=== PATIENT | female | born 1950 | race Caucasian/White ===

== ENCOUNTER → 2016-11-01 | Outpatient (CLI) | payer MEDICARE, OTHER ==
[~2016-11-01] MED LIST: AMOXICILLIN200 MG PO; CHILDREN'S CLEA10 MG PO; HYDR12.5C PO; LORATADINE10 M1 PO; VITAMIN D400 I1 PO
== END | disposition home or self-care (01) ==
LOC: US 07:30
DX: K76.0 Fatty (change of) liver, not elsewhere classified (principal)

== ENCOUNTER → 2016-11-03 | Outpatient (CLI) | payer MEDICARE, OTHER | END | disposition home or self-care (01) | LOC: RAD 13:14 | DX: Z01.818 Encounter for other preprocedural examination (principal); M76.821 Posterior tibial tendinitis, right leg; I10 Essential (primary) hypertension; E55.9 Vitamin D deficiency, unspecified; Z87.891 Personal history of nicotine dependence ==

== ENCOUNTER 2017-02-26 11:59 | Inpatient (IN) | payer MEDICARE, OTHER ==
[~2017-02-26] VITALS: Ht 160 cm; Wt 72.3 kg
[2017-02-26 12:03] VITALS: BP 114/60
[2017-02-26 12:30] LABS: BASO % 0.3 % (0.0-1.0); EOS % 0.5 % (1.0-4.0); HEMATOCRIT 35.6 % (37.0-47.0); HEMOGLOBIN 12.2 g/dl (12.0-16.0); LYMPH # 0.9 10*3/uL (1.3-4.4); LYMPH % 15.6 % (27.0-41.0); MEAN CELL VOLUME 87.7 fl (81.0-99.0); MEAN CORPUSCULAR HGB CONC 34.3 g/dl (33.0-37.0); MEAN PLATELET VOLUME 9.3 fl (9.6-12.3); NEUT # 3.9 10*3/uL (2.3-7.9); NEUT % 65.9 % (47.0-73.0); PLATELET COUNT AUTOMATED 202 10*3/uL (130-400); RED BLOOD COUNT 4.06 10*6/uL (4.10-5.10); RED CELL DISTRI WIDTH 12.4 % (0-14.5); WHITE BLOOD COUNT 5.9 10*3/uL (4.8-10.8)
[2017-02-26 13:07] LABS: BILIRUBIN NEGATIVE (NEGATIVE); BLOOD TRACE-INTACT (NEGATIVE); CLARITY SL CLOUDY (CLEAR); COLOR YELLOW (YELLOW); GLUCOSE NEGATIVE (NEGATIVE); KETONE NEGATIVE (NEGATIVE); LEUKO ESTERASE 1+ (NEGATIVE); NITRITE NEGATIVE (NEGATIVE); SPECIFIC GRAVITY <= 1.005 (1.005-1.030); UROBILINOGEN 0.2 E.U./dl (0.2-1.0)
[2017-02-26 13:13] LABS: BACTERIA TRACE; WBC 0-2 wbc/hpf (0-5)
[2017-02-26 13:13] LABS: ALBUMIN 3.1 gm/dl (3.1-4.5); ALKALINE PHOSPHATASE 72 U/L (45-117); BUN 11 mg/dl (7-24); CHLORIDE 95 mmol/L (98-107); CREATININE 0.66 mg/dL (0.55-1.02); POTASSIUM 2.7 mmol/L (3.5-5.1); SGOT/AST 22 IU/L (3-35); SGPT/ALT 25 U/L (12-78); SODIUM 134 mmol/L (136-145); TOTAL PROTEIN 7.1 gm/dL (6.4-8.2)
[2017-02-26 16:00] VITALS: BP 117/53; BP 122/55
--- NOTE | 2017-02-26 16:00 | NUR ---
A 66, admitted to , under the services of YOUSIF Jay DO with a diagnosis of HYPOKALEMIA/DIARRHEA. Chief complaint is DIARRHEA. Patient arrived via ambulance from ER. Monitor applied. Initial assessment completed. Vital signs taken and recorded. YOUSIF JAY DO notified of admission to the unit. Orders received. See assessment for past medical history, medications and allergies. Patient and/or family oriented to unit. [facility] reviewed. Clothing/patient valuable form completed. KRISTY GRANADOS
--- NOTE | 2017-02-26 17:37 | NUR ---
RESTING QUIETLY - IVF INFUSING VIA RAN ASYMPTOMATIC SITE. POTASSIUM RUN INFUSING.
[2017-02-26 20:00] VITALS: BP 110/69
--- NOTE | 2017-02-26 20:00 | NUR ---
Patient resting quietly with C/O DIARRHEA THAT IS LESS FREQUENT.IVF INFUSING. Respirations easy and regular. Vital signs stable. No overt distress. TINO CARSON
[2017-02-27] VITALS: BP 108/49
--- NOTE | 2017-02-27 00:10 | NUR ---
PT RESTING IN BED WITH EYES CLOSED. RESP-EASY AND REGULAR. IVF INFUSING WITH NO PROBLEM. CALL LIGHT IN REACH. SEE SHIFT ASSESSMENT.
--- NOTE | 2017-02-27 06:00 | NUR ---
SLEEPING IN BED, AWAKENS EASILY. TOLERATED ROUTINE MED WITH NO PROBLEM. IVF INFUSING WITH NO PROBLEM. CALL LIGHT IN REACH.
[2017-02-27 06:08] LABS: BUN 7 mg/dl (7-24); CHLORIDE 103 mmol/L (98-107); CHOLESTEROL 150 mg/dL (<200); CREATININE 0.56 mg/dL (0.55-1.02); MAGNESIUM 2.2 mg/dL (1.5-2.1); PHOSPHOROUS 3.1 mg/dL (2.5-4.9); POTASSIUM 2.9 mmol/L (3.5-5.1); SODIUM 140 mmol/L (136-145); TRIGLYCERIDES 121 mg/dl (<150); VLDL CHOLESTEROL 24 mg/dL (6-40)
[2017-02-27 06:13] LABS: HEMATOCRIT 31.2 % (37.0-47.0); HEMOGLOBIN 10.5 g/dl (12.0-16.0); MEAN CELL VOLUME 89.9 fl (81.0-99.0); MEAN CORPUSCULAR HGB 30.3 pg (27.0-31.0); MEAN CORPUSCULAR HGB CONC 33.7 g/dl (33.0-37.0); MEAN PLATELET VOLUME 9.8 fl (9.6-12.3); PLATELET COUNT AUTOMATED 181 10*3/uL (130-400); RED BLOOD COUNT 3.47 10*6/uL (4.10-5.10); RED CELL DISTRI WIDTH 12.7 % (0-14.5); WHITE BLOOD COUNT 4.9 10*3/uL (4.8-10.8)
[2017-02-27 06:17] LABS: HDL CHOLESTEROL 39 mg/dl (40-60); LDL CHOLESTEROL 87 mg/dL (9-159)
[2017-02-27 07:15] LABS: PLATELET SUFFICIENCY NORMAL (NORMAL); TOTAL CELLS COUNTED 100 #CELLS
--- NOTE | 2017-02-27 07:17 | NUR ---
DR JOHNSON CALLED WITH LOW POTASSIUM RESULT - ORDERS TO COME
[2017-02-27 07:18] LABS: VITAMIN D, 25-HYDROXY 63.4 ng/mL (30-100)
[2017-02-27 08:00] VITALS: BP 107/60
--- NOTE | 2017-02-27 10:12 | NUR ---
MED REC HAS BEEN UPDATED PER AAOX3 PATIENT
--- NOTE | 2017-02-27 11:19 | NUR ---
POTASSIUM RUN COMPLETED. IV SITE ASYMPTOMATIC WITH IVF INFUSING
[2017-02-27 12:00] VITALS: BP 121/64
--- NOTE | 2017-02-27 16:35 | NUR ---
PT AMBULATED OUT PER HER REQUEST AFTER RECEIVING MONEY FROM LOCK BOX
== END 2017-02-27 16:35 | disposition home or self-care (01) | DRG 641 ==
LOC: ED 11:59 → EDHOLD 13:32 → 4E 13:42
PROVIDERS: Family Medicine Adult Medicine; Student in an Organized Health Care Education/Training Program; ADMIT Emergency Medicine
DX: E87.1 Hypo-osmolality and hyponatremia (principal); E83.41 Hypermagnesemia; I10 Essential (primary) hypertension; R19.7 Diarrhea, unspecified; E87.8 Other disorders of electrolyte and fluid balance, not elsewhere classified; E87.6 Hypokalemia; F10.10 Alcohol abuse, uncomplicated; Z79.899 Other long term (current) drug therapy; Z87.891 Personal history of nicotine dependence; Z81.8 Family history of other mental and behavioral disorders; Z82.49 Family history of ischemic heart disease and other diseases of the circulatory system; Z80.0 Family history of malignant neoplasm of digestive organs

== ENCOUNTER → 2017-03-02 | Outpatient (CLI) | payer MEDICARE, OTHER ==
[2017-03-02 18:44] LABS: BUN 14 mg/dl (7-24); CHLORIDE 101 mmol/L (98-107); CREATININE 0.64 mg/dL (0.55-1.02); MAGNESIUM 2.2 mg/dL (1.5-2.1); POTASSIUM 3.5 mmol/L (3.5-5.1); SODIUM 138 mmol/L (136-145)
== END | disposition home or self-care (01) ==
LOC: LAB 17:56
PROVIDERS: Family Medicine
DX: E87.6 Hypokalemia (principal); E83.41 Hypermagnesemia

== ENCOUNTER → 2017-03-24 | Outpatient (CLI) | payer MEDICARE, OTHER ==
[2017-03-24 11:12] LABS: HEMATOCRIT 38.4 % (37.0-47.0); HEMOGLOBIN 12.7 g/dl (12.0-16.0); MEAN CORPUSCULAR HGB 30.8 pg (27.0-31.0); MEAN CORPUSCULAR HGB CONC 33.1 g/dl (33.0-37.0); MEAN PLATELET VOLUME 9.3 fl (9.6-12.3); RED BLOOD COUNT 4.13 10*6/uL (4.10-5.10); RED CELL DISTRI WIDTH 12.9 % (0-14.5)
[2017-03-24 11:35] LABS: ALBUMIN 3.6 gm/dl (3.1-4.5); ALKALINE PHOSPHATASE 82 U/L (45-117); BUN 14 mg/dl (7-24); CHLORIDE 105 mmol/L (98-107); CHOLESTEROL 211 mg/dL (<200); CREATININE 0.63 mg/dL (0.55-1.02); HDL CHOLESTEROL 50 mg/dl (40-60); LDL CHOLESTEROL 122 mg/dL (9-159); POTASSIUM 4.9 mmol/L (3.5-5.1); SGOT/AST 20 IU/L (3-35); SGPT/ALT 25 U/L (12-78); SODIUM 139 mmol/L (136-145); TOTAL PROTEIN 7.1 gm/dL (6.4-8.2); TRIGLYCERIDES 194 mg/dl (<150); VLDL CHOLESTEROL 39 mg/dL (6-40)
== END | disposition home or self-care (01) ==
LOC: LAB 10:40 → RAD 11:00
DX: I10 Essential (primary) hypertension (principal); R19.7 Diarrhea, unspecified; E55.9 Vitamin D deficiency, unspecified; M19.90 Unspecified osteoarthritis, unspecified site; Z78.0 Asymptomatic menopausal state; Z82.62 Family history of osteoporosis

== ENCOUNTER → 2019-12-13 | Outpatient (CLI) | payer MEDICARE, OTHER | END | disposition home or self-care (01) | LOC: RAD 09:00 | DX: M81.0 Age-related osteoporosis without current pathological fracture (principal); Z78.0 Asymptomatic menopausal state ==

== ENCOUNTER → 2020-01-22 | Outpatient (CLI) | payer MEDICARE, OTHER | END | disposition home or self-care (01) | LOC: RAD 10:05 | DX: M19.012 Primary osteoarthritis, left shoulder (principal) ==

== ENCOUNTER → 2021-02-23 | Outpatient (CLI) | payer MEDICARE, OTHER | END | disposition home or self-care (01) | LOC: INJECTION 09:00 | PROVIDERS: ATTEND Physician Assistant | DX: M85.812 Other specified disorders of bone density and structure, left shoulder (principal) ==

== ENCOUNTER → 2021-05-06 | Day surgery (SDC) | payer MEDICARE, OTHER ==
[2021-05-03 12:27] LABS: BUN 18 mg/dl (7-24); CHLORIDE 103 mmol/L (98-107); CREATININE 0.68 mg/dL (0.55-1.02); POTASSIUM 4.2 mmol/L (3.5-5.1); SODIUM 138 mmol/L (136-145)
[~2021-05-06] VITALS: Ht 160 cm; Wt 68.0 kg
[~2021-05-06] MED LIST changes: +ZYRTEC10 M3 PO
[2021-05-06 09:30] VITALS: BP 148/85
[2021-05-06 10:40] VITALS: BP 122/65
[2021-05-06 10:55] VITALS: BP 137/69
[2021-05-06 11:10] VITALS: BP 125/75
== END | disposition home or self-care (01) ==
LOC: SDC 05-03 12:15
PROVIDERS: ATTEND Orthopaedic Surgery
DX: G56.03 Carpal tunnel syndrome, bilateral upper limbs (principal); G62.9 Polyneuropathy, unspecified; I10 Essential (primary) hypertension; Z87.891 Personal history of nicotine dependence; Z79.899 Other long term (current) drug therapy; Z20.822 Contact with and (suspected) exposure to COVID-19

== ENCOUNTER → 2021-06-09 | Outpatient (CLI) | payer MEDICARE, OTHER | END | disposition home or self-care (01) | LOC: RAD 09:17 | PROVIDERS: ATTEND Physician Assistant | DX: R05.9 Cough, unspecified (principal); M47.814 Spondylosis without myelopathy or radiculopathy, thoracic region ==

== ENCOUNTER → 2021-09-13 | Outpatient (CLI) | payer MEDICARE, OTHER ==
[2021-09-13 10:22] VITALS: BP 141/57
== END | disposition home or self-care (01) ==
LOC: INJECTION 09:30
PROVIDERS: ATTEND Physician Assistant
DX: M85.812 Other specified disorders of bone density and structure, left shoulder (principal)

== ENCOUNTER → 2022-04-14 | Outpatient (CLI) | payer MEDICARE, OTHER | END | disposition home or self-care (01) | LOC: INJECTION 09:28 | PROVIDERS: ATTEND Physician Assistant | DX: M85.80 Other specified disorders of bone density and structure, unspecified site (principal); Z98.890 Other specified postprocedural states; Z87.891 Personal history of nicotine dependence ==

== ENCOUNTER → 2022-06-30 | Outpatient (CLI) | payer MEDICARE, OTHER | END | disposition home or self-care (01) | LOC: MRI 01:06 | PROVIDERS: ATTEND Physician Assistant | DX: M51.36 Other intervertebral disc degeneration, lumbar region (principal); M48.061 Spinal stenosis, lumbar region without neurogenic claudication; M47.816 Spondylosis without myelopathy or radiculopathy, lumbar region ==

== ENCOUNTER → 2022-08-17 | Outpatient (CLI) | payer MEDICARE, OTHER | END | disposition home or self-care (01) | LOC: ORTHO 01:50 | PROVIDERS: ATTEND Orthopaedic Surgery | DX: M19.071 Primary osteoarthritis, right ankle and foot (principal) ==

== ENCOUNTER → 2022-11-28 | Outpatient (CLI) | payer MEDICARE, OTHER ==
[2022-11-28 10:20] VITALS: BP 116/68
== END | disposition home or self-care (01) ==
LOC: INJECTION 10:06
PROVIDERS: ATTEND Physician Assistant
DX: M85.80 Other specified disorders of bone density and structure, unspecified site (principal); Z87.891 Personal history of nicotine dependence

== ENCOUNTER → 2023-03-03 | Outpatient (CLI) | payer MEDICARE, OTHER | END | disposition home or self-care (01) | LOC: ORTHO 09:00 | PROVIDERS: ATTEND Orthopaedic Surgery | DX: M19.011 Primary osteoarthritis, right shoulder (principal) ==

== ENCOUNTER → 2023-04-19 | Outpatient (CLI) | payer MEDICARE, OTHER | END | disposition home or self-care (01) | LOC: MRI 00:49 | PROVIDERS: ATTEND Physician Assistant | DX: I67.82 Cerebral ischemia (principal); R51.9 Headache, unspecified ==

== ENCOUNTER → 2023-05-31 | Outpatient (CLI) | payer MEDICARE, OTHER ==
[2023-05-31 10:02] VITALS: BP 130/67
== END | disposition home or self-care (01) ==
LOC: INJECTION 00:37
PROVIDERS: ATTEND Physician Assistant
DX: M85.80 Other specified disorders of bone density and structure, unspecified site (principal); J45.909 Unspecified asthma, uncomplicated; Z87.891 Personal history of nicotine dependence

== ENCOUNTER → 2023-11-29 | Outpatient (CLI) | payer MEDICARE, OTHER ==
[~2023-11-29] MED LIST changes: +BREO ELLIPTA 11 EACH INH; +DENOSUMAB 60 MG/ML SYRINGE SC ONE; +MELOXICAM7.5 MG PO
[2023-11-29 10:23] VITALS: BP 142/70
== END | disposition home or self-care (01) ==
LOC: INJECTION 00:56
PROVIDERS: ATTEND Physician Assistant
DX: M85.88 Other specified disorders of bone density and structure, other site (principal); J45.909 Unspecified asthma, uncomplicated; Z98.891 History of uterine scar from previous surgery; Z90.49 Acquired absence of other specified parts of digestive tract

== ENCOUNTER → 2024-07-05 | Outpatient (CLI) | payer MEDICARE, OTHER | END | disposition home or self-care (01) | LOC: INJECTION 00:11 | PROVIDERS: ATTEND Physician Assistant | DX: M85.80 Other specified disorders of bone density and structure, unspecified site (principal); I10 Essential (primary) hypertension; J45.909 Unspecified asthma, uncomplicated; F10.90 Alcohol use, unspecified, uncomplicated; Z87.891 Personal history of nicotine dependence; Z90.49 Acquired absence of other specified parts of digestive tract ==

== ENCOUNTER → 2024-09-19 | Outpatient (CLI) | payer MEDICARE, OTHER ==
[~2024-09-19] MED LIST changes: -DENOSUMAB 60 MG/ML SYRINGE SC ONE
== END | disposition home or self-care (01) ==
LOC: RAD 00:39
PROVIDERS: ATTEND Chiropractor
DX: M47.816 Spondylosis without myelopathy or radiculopathy, lumbar region (principal)

== ENCOUNTER → 2024-10-04 | Outpatient (CLI) | payer MEDICARE, OTHER ==
[2024-10-04 09:39] LABS: CHOLESTEROL 241 mg/dL (<200); LDL CHOLESTEROL 137 mg/dL (9-159); TRIGLYCERIDES 81 mg/dl (<150)
== END | disposition home or self-care (01) ==
LOC: LAB 00:27 → MRI 10:00 → LAB 10:00
PROVIDERS: ATTEND Psychiatry & Neurology Neurology
DX: I65.23 Occlusion and stenosis of bilateral carotid arteries (principal); I67.82 Cerebral ischemia; J32.0 Chronic maxillary sinusitis; R42 Dizziness and giddiness

== ENCOUNTER → 2025-01-06 | Outpatient (CLI) | payer MEDICARE, OTHER ==
[~2025-01-06] MED LIST changes: +DENOSUMAB 60 MG/ML SYRINGE SC ONE
[2025-01-06 10:00] VITALS: BP 175/56
== END | disposition home or self-care (01) ==
LOC: INJECTION 02:03 → SDC 10:00 → EDSTATUS 10:00
PROVIDERS: ATTEND Physician Assistant
DX: M85.80 Other specified disorders of bone density and structure, unspecified site (principal); J45.909 Unspecified asthma, uncomplicated; Z90.49 Acquired absence of other specified parts of digestive tract; Z87.891 Personal history of nicotine dependence